=== PATIENT | male | born 1955 | race Caucasian/White ===

== ENCOUNTER → 2016-12-03 | Outpatient (CLI) | payer MEDICAID | END | disposition home or self-care (01) | LOC: Rad HDHVI 08:25 | PROVIDERS: ATTEND Internal Medicine Cardiovascular Disease | DX: Z01.810 Encounter for preprocedural cardiovascular examination (principal); I10 Essential (primary) hypertension; E11.9 Type 2 diabetes mellitus without complications; I07.1 Rheumatic tricuspid insufficiency; I34.2 Nonrheumatic mitral (valve) stenosis; I35.0 Nonrheumatic aortic (valve) stenosis | CPT/HCPCS: 93306 ==

== ENCOUNTER → 2016-12-23 | Outpatient (CLI) | payer MEDICAID ==
[~2016-12-23] VITALS: Ht 177.8 cm; Wt 108.0 kg
== END | disposition home or self-care (01) ==
LOC: Rad HDHVI 08:12
PROVIDERS: ATTEND Internal Medicine Cardiovascular Disease
DX: I25.10 Atherosclerotic heart disease of native coronary artery without angina pectoris (principal); I10 Essential (primary) hypertension; E11.9 Type 2 diabetes mellitus without complications; I25.2 Old myocardial infarction; Z95.1 Presence of aortocoronary bypass graft; E78.00 Pure hypercholesterolemia, unspecified
CPT/HCPCS: 78452; 93017; 96374; A9500

== ENCOUNTER 2022-08-20 20:41 | Emergency (ER) | payer MEDICARE, MEDICAID ==
[~2022-08-20] VITALS: Ht 180.3 cm; Wt 108.8 kg
[2022-08-20 23:08] VITALS: BP 130/75
== END 2022-08-21 06:42 | disposition left against medical advice (07) ==
LOC: ER 20:41
DX: M25.521 Pain in right elbow (principal); Z53.21 Procedure and treatment not carried out due to patient leaving prior to being seen by health care provider

== ENCOUNTER 2022-09-05 11:51 | Inpatient (IN) | payer MEDICARE, MEDICAID ==
[~2022-09-05] VITALS: Ht 180.3 cm; Wt 104.0 kg
[2022-09-05] MEDS ORDERED: ONDANSETRON HCL 4 MG/2 ML VIAL IV ONE (12:00)
[2022-09-05] MEDS ORDERED: ASPirin 325 MG TAB PO ONE (12:00)
[2022-09-05] MEDS ORDERED: NITROGLYCERIN 0.4 MG SL TAB SL ONE (12:00)
[2022-09-05] MEDS ORDERED: MORPHINE SULFATE 4 MG/ML SYR/VIAL IV ONE (12:00)
[2022-09-05 12:24] LABS: Basophils # (auto) 0 10 ^3/uL (0-0.2); Basophils % (auto) 0.6 % (0.0-2.0); Eosinophils # (auto) 0.1 10 ^3/uL (0-0.8); Eosinophils % (auto) 1.6 % (0.0-7.0); Hematocrit 43.8 % (41.0-53.0); Hemoglobin 14.8 g/dL (13.5-17.5); Lymphocytes # (auto) 1.4 10 ^3/uL (0.4-5.4); Lymphocytes % (auto) 32.8 % (10.0-50.0); Mean Corpuscular Hemoglobin 29.7 pg (28.0-32.0); Mean Corpuscular Hgb Conc. 33.8 g/dL (32.0-36.0); Monocytes # (auto) 0.5 10 ^3/uL (0-1.3); Monocytes % (auto) 12.3 % (0.0-12.0); Neutrophils # (auto) 2.2 10 ^3/uL (1.6-8.6); Neutrophils % (auto) 52.7 % (37.0-80.0); Red Blood Cells 4.98 10^6/uL (4.5-5.90); Red Cell Distribution Width 14.5 % (11.8-14.3); White Blood Cell 4.1 10^3/uL (4.4-10.8)
[2022-09-05 12:41] LABS: INR 1.01 (0.9-1.15); Partial Thromboplastin Time 26.3 sec (24.6-33.4)
[2022-09-05 12:42] LABS: Albumin 3.6 g/dL (3.4-5.0); BUN/Creatinine Ratio 15.9; Calcium 8.5 mg/dL (8.5-10.1); Potassium 4.3 mmol/L (3.5-5.1)
[2022-09-05 12:45] LABS: Bilirubin, Total 0.4 mg/dL (0.2-1.0); Total Protein 6.5 g/dL (6.4-8.2)
[2022-09-05 13:46] LABS: Urine Bacteria NONE SEEN /hpf (None Seen); Urine Blood Negative /uL (Negative); Urine WBC <1 /hpf (0 - 3)
[2022-09-05] MEDS ORDERED: ONDANSETRON HCL 4 MG/2 ML VIAL IV PRN (17:15)
[2022-09-05] MEDS ORDERED: NITROGLYCERIN 0.4 MG SL TAB SL PRN (17:15)
[2022-09-05] MEDS ORDERED: ACETAMINOPHEN 325 MG TAB PO PRN (17:15)
[2022-09-05] MEDS ORDERED: HYDROmorphone HCL 2 MG/ML VL/or syr IV PRN (17:15)
[2022-09-05] MEDS ORDERED: HYDROcodone-ACET 5/325MG TAB PO PRN (17:15)
[2022-09-05] MEDS ORDERED: IOHEXOL 350 MG/ML 100ML IJ ONE (19:30)
[2022-09-05] MEDS: MORPHINE SULFATE INJ 2 MG/ml SYRG IV PRN (19:55)
[2022-09-05] MEDS: SODIUM CHLOR 0.9% PF (SALINE LOCK) 10ML VIAL/SYR IV SCH (22:00)
[2022-09-06] VITALS (7 sets, daily range): BP systolic 99–121; BP diastolic 57–78
[2022-09-06] MEDS: MORPHINE SULFATE INJ 2 MG/ml SYRG IV PRN (03:37)
[2022-09-06] MEDS ORDERED: ASPirin 81 mg TAB PO ONE (04:30)
[2022-09-06] MEDS: SODIUM CHLOR 0.9% PF (SALINE LOCK) 10ML VIAL/SYR IV SCH ×3 (05:36→22:39)
[2022-09-06] MEDS ORDERED: KETOROLAC TROMETH 30 MG/ML 1ML VIAL IV ONE (06:30)
[2022-09-06] MEDS ORDERED: CHOL20007 PO (08:14)
[2022-09-06] MEDS ORDERED: SIMV-8 PO (08:14)
[2022-09-06] MEDS ORDERED: ALOG1TAB3 PO (08:14)
[2022-09-06] MEDS ORDERED: EMPA1TAB3 PO (08:14)
[2022-09-06] MEDS ORDERED: LISI-275 PO (08:14)
[2022-09-06] MEDS ORDERED: CLOP75TA70 PO (08:14)
[2022-09-06] MEDS ORDERED: GLIP10TA9 PO (08:14)
[2022-09-06] MEDS ORDERED: ASPI-543 PO (08:14)
[2022-09-06] MEDS ORDERED: ACET-1156 PO (08:14)
[2022-09-06] MEDS: CLOPIDOGREL BISULFATE 75 MG TAB PO SCH (09:35)
[2022-09-06] MEDS: ASPirin-EC 81 mg tab PO SCH (09:35)
[2022-09-06] MEDS ORDERED: DEXTROSE (50%) 50ML SYRG IV PRN (11:30)
[2022-09-06] MEDS: ACCU-CHEK COMFORT CURVE STRIP VI SCH ×3 (11:58→22:36)
[2022-09-06] MEDS: InsuLIN REG 1unit/0.01ml Soln (100units/ml) SC SCH ×3 (12:03→22:38)
[2022-09-06] MEDS: ATORVASTATIN 20 MG TAB PO SCH (22:28)
[2022-09-07] VITALS (8 sets, daily range): BP systolic 104–124; BP diastolic 63–80
[2022-09-07 05:31] LABS: Basophils # (auto) 0 10 ^3/uL (0-0.2); Basophils % (auto) 0.8 % (0.0-2.0); Eosinophils # (auto) 0.1 10 ^3/uL (0-0.8); Hematocrit 45.1 % (41.0-53.0); Hemoglobin 15.6 g/dL (13.5-17.5); Lymphocytes # (auto) 1.7 10 ^3/uL (0.4-5.4); Lymphocytes % (auto) 35.2 % (10.0-50.0); Mean Corpuscular Hemoglobin 30.2 pg (28.0-32.0); Mean Corpuscular Hgb Conc. 34.4 g/dL (32.0-36.0); Mean Corpuscular Volume 87.5 fL (80.0-100.0); Monocytes # (auto) 0.6 10 ^3/uL (0-1.3); Monocytes % (auto) 12.5 % (0.0-12.0); Neutrophils # (auto) 2.4 10 ^3/uL (1.6-8.6); Neutrophils % (auto) 49.5 % (37.0-80.0); Nucleated Red Blood Cells % 0.1 %; Red Blood Cells 5.16 10^6/uL (4.5-5.90); Red Cell Distribution Width 14.4 % (11.8-14.3); White Blood Cell 4.8 10^3/uL (4.4-10.8)
[2022-09-07 05:45] LABS: Albumin 3.9 g/dL (3.4-5.0); Calcium 8.6 mg/dL (8.5-10.1); Potassium 4.6 mmol/L (3.5-5.1)
[2022-09-07 05:50] LABS: BUN/Creatinine Ratio 18.1; Bilirubin, Total 0.4 mg/dL (0.2-1.0); Total Protein 6.6 g/dL (6.4-8.2)
[2022-09-07] MEDS: InsuLIN REG 1unit/0.01ml Soln (100units/ml) SC SCH ×4 (06:07→21:07)
[2022-09-07] MEDS: SODIUM CHLOR 0.9% PF (SALINE LOCK) 10ML VIAL/SYR IV SCH ×3 (06:08→22:14)
[2022-09-07] MEDS: ACCU-CHEK COMFORT CURVE STRIP VI SCH ×4 (07:03→21:06)
[2022-09-07] MEDS: ASPirin-EC 81 mg tab PO SCH (09:56)
[2022-09-07] MEDS: CHOLECALCIFEROL (VITD3) 2,000 UNIT CAP/TAB PO SCH (09:57)
[2022-09-07] MEDS: CLOPIDOGREL BISULFATE 75 MG TAB PO SCH (09:57)
[2022-09-07] MEDS: LISINOPRIL 5 MG TAB PO SCH (09:58)
[2022-09-07] MEDS ORDERED: IOHEXOL 350 MG/ML 100ML IJ ONE ×2 (12:39→15:09)
[2022-09-07] MEDS ORDERED: LIDOCAINE 2%HCL (LOCAL ANESTH.) INJ 10ml MDV ONE ×2 (12:39→15:09)
[2022-09-07] MEDS ORDERED: ANGIOMAX 250 MG VIAL IV ONE (15:06)
[2022-09-07] MEDS ORDERED: SODIUM CHL 0.9% 0 ML ONE (15:07)
[2022-09-07] MEDS ORDERED: fentaNYL CITRATE 100 MCG/2 ML VL ONE (15:07)
[2022-09-07] MEDS ORDERED: MIDAZOLAM HCL 2MG/2ML 2ml VIAL (1mg/ml) ONE (15:07)
[2022-09-07] MEDS: DOCUSATE SOD 100 MG CAP PO PRN (21:08)
[2022-09-07] MEDS: ATORVASTATIN 20 MG TAB PO SCH (21:08)
[2022-09-08 04:47] VITALS: BP 101/68
[2022-09-08] MEDS: SODIUM CHLOR 0.9% PF (SALINE LOCK) 10ML VIAL/SYR IV SCH ×3 (05:14→21:18)
[2022-09-08] MEDS: ACCU-CHEK COMFORT CURVE STRIP VI SCH ×4 (06:17→21:20)
[2022-09-08] MEDS: InsuLIN REG 1unit/0.01ml Soln (100units/ml) SC SCH ×4 (06:21→21:20)
[2022-09-08 08:59] LABS: BUN/Creatinine Ratio 14.3; Calcium 9.1 mg/dL (8.5-10.1); Potassium 4.2 mmol/L (3.5-5.1)
[2022-09-08 09:08] VITALS: BP 115/73
[2022-09-08] MEDS: ASPirin-EC 81 mg tab PO SCH (09:27)
[2022-09-08] MEDS: CHOLECALCIFEROL (VITD3) 2,000 UNIT CAP/TAB PO SCH (09:27)
[2022-09-08] MEDS: CLOPIDOGREL BISULFATE 75 MG TAB PO SCH (09:27)
[2022-09-08] MEDS: LISINOPRIL 5 MG TAB PO SCH (09:28)
[2022-09-08 13:40] VITALS: BP 125/73
[2022-09-08 17:23] VITALS: BP 106/70
[2022-09-08] MEDS: DOCUSATE SOD 100 MG CAP PO PRN (21:12)
[2022-09-08] MEDS: ATORVASTATIN 20 MG TAB PO SCH (21:12)
[2022-09-08 22:25] VITALS: BP 117/82
[2022-09-09 04:43] VITALS: BP 113/76
[2022-09-09] MEDS: SODIUM CHLOR 0.9% PF (SALINE LOCK) 10ML VIAL/SYR IV SCH ×3 (06:09→23:30)
[2022-09-09] MEDS: ACCU-CHEK COMFORT CURVE STRIP VI SCH ×4 (06:16→23:30)
[2022-09-09] MEDS: InsuLIN REG 1unit/0.01ml Soln (100units/ml) SC SCH ×4 (06:21→23:41)
[2022-09-09 08:51] VITALS: BP 117/74
[2022-09-09] MEDS: CHOLECALCIFEROL (VITD3) 2,000 UNIT CAP/TAB PO SCH (09:13)
[2022-09-09] MEDS: ASPirin-EC 81 mg tab PO SCH (09:13)
[2022-09-09] MEDS: LISINOPRIL 5 MG TAB PO SCH (09:14)
[2022-09-09] MEDS: CLOPIDOGREL BISULFATE 75 MG TAB PO SCH (09:14)
[2022-09-09] MEDS: DOCUSATE SOD 100 MG CAP PO PRN ×2 (11:33→23:34)
[2022-09-09 12:39] VITALS: BP 110/66
[2022-09-09 16:36] VITALS: BP 104/72
[2022-09-09 22:00] VITALS: BP 113/69
[2022-09-09] MEDS: ATORVASTATIN 20 MG TAB PO SCH (23:30)
[2022-09-10] VITALS (9 sets, daily range): BP systolic 101–116; BP diastolic 68–80
[2022-09-10 01:59] LABS: INR 1.01 (0.9-1.15); Partial Thromboplastin Time 27.7 sec (24.6-33.4)
[2022-09-10 06:36] LABS: Basophils # (auto) 0 10 ^3/uL (0-0.2); Basophils % (auto) 0.4 % (0.0-2.0); Eosinophils # (auto) 0.1 10 ^3/uL (0-0.8); Hematocrit 46.3 % (41.0-53.0); Hemoglobin 16.2 g/dL (13.5-17.5); Lymphocytes # (auto) 1.6 10 ^3/uL (0.4-5.4); Lymphocytes % (auto) 38.5 % (10.0-50.0); Mean Corpuscular Hgb Conc. 34.9 g/dL (32.0-36.0); Monocytes # (auto) 0.6 10 ^3/uL (0-1.3); Monocytes % (auto) 15.2 % (0.0-12.0); Neutrophils # (auto) 1.8 10 ^3/uL (1.6-8.6); Neutrophils % (auto) 43.9 % (37.0-80.0); Nucleated Red Blood Cells % 0.2 %; Red Blood Cells 5.38 10^6/uL (4.5-5.90); Red Cell Distribution Width 14.2 % (11.8-14.3)
[2022-09-10] MEDS: SODIUM CHLOR 0.9% PF (SALINE LOCK) 10ML VIAL/SYR IV SCH ×3 (06:40→22:17)
[2022-09-10] MEDS: ACCU-CHEK COMFORT CURVE STRIP VI SCH ×4 (06:44→22:18)
[2022-09-10 06:47] LABS: BUN/Creatinine Ratio 18.8; Calcium 9.2 mg/dL (8.5-10.1); Potassium 3.9 mmol/L (3.5-5.1)
[2022-09-10] MEDS: InsuLIN REG 1unit/0.01ml Soln (100units/ml) SC SCH ×4 (06:48→22:22)
[2022-09-10] MEDS: CHOLECALCIFEROL (VITD3) 2,000 UNIT CAP/TAB PO SCH (09:35)
[2022-09-10] MEDS: ASPirin-EC 81 mg tab PO SCH (09:35)
[2022-09-10] MEDS: CLOPIDOGREL BISULFATE 75 MG TAB PO SCH (09:35)
[2022-09-10] MEDS: LISINOPRIL 5 MG TAB PO SCH (09:36)
[2022-09-10] MEDS: DOCUSATE SOD 100 MG CAP PO PRN (09:40)
[2022-09-10] MEDS ORDERED: fentaNYL CITRATE 100 MCG/2 ML VL ONE (09:49)
[2022-09-10] MEDS ORDERED: ANGIOMAX 250 MG VIAL IV ONE ×2 (09:49→10:47)
[2022-09-10] MEDS ORDERED: SODIUM CHL 0.9% 50 ML ONE ×2 (09:49→10:47)
[2022-09-10] MEDS ORDERED: MIDAZOLAM HCL 2MG/2ML 2ml VIAL (1mg/ml) ONE (09:49)
[2022-09-10] MEDS ORDERED: LIDOCAINE 2%HCL (LOCAL ANESTH.) INJ 10ml MDV ONE ×2 (09:50→10:06)
[2022-09-10] MEDS ORDERED: IOHEXOL 350 MG/ML 100ML IJ ONE ×3 (09:52→11:01)
[2022-09-10] MEDS ORDERED: EPTIFIBATIDE INJ (2MG/ML) 10ML VIAL IV ONE (10:50)
[2022-09-10] MEDS ORDERED: ADENOSINE 6 MG/2 ML INJ IV ONE (10:57)
[2022-09-10] MEDS: ATORVASTATIN 20 MG TAB PO SCH (22:22)
[2022-09-11 05:00] VITALS: BP 108/68
[2022-09-11] MEDS: SODIUM CHLOR 0.9% PF (SALINE LOCK) 10ML VIAL/SYR IV SCH (06:30)
[2022-09-11] MEDS: ACCU-CHEK COMFORT CURVE STRIP VI SCH (06:32)
[2022-09-11] MEDS: InsuLIN REG 1unit/0.01ml Soln (100units/ml) SC SCH (06:40)
[2022-09-11 06:53] LABS: Potassium 4.3 mmol/L (3.5-5.1)
[2022-09-11 07:04] LABS: BUN/Creatinine Ratio 16.2; Calcium 9.3 mg/dL (8.5-10.1)
[2022-09-11 09:11] VITALS: BP 109/67
[2022-09-11] MEDS: CLOPIDOGREL BISULFATE 75 MG TAB PO SCH (09:24)
[2022-09-11] MEDS: CHOLECALCIFEROL (VITD3) 2,000 UNIT CAP/TAB PO SCH (09:24)
[2022-09-11] MEDS: ASPirin-EC 81 mg tab PO SCH (09:24)
[2022-09-11] MEDS: LISINOPRIL 5 MG TAB PO SCH (09:25)
[2022-09-11 10:45] VITALS: BP 109/67
[2022-09-11] MEDS ORDERED: GLUC-244 VI (19:48)
== END 2022-09-11 12:12 | disposition home or self-care (01) | DRG 248 ==
LOC: EDBD 11:51 → ER 11:51 → TELE 17:17 → TELE-CENTR 09-06 01:30
PROVIDERS: ADMIT Internal Medicine; ATTEND Internal Medicine Geriatric Medicine
PROC: 4A023N7 Measurement of Cardiac Sampling and Pressure, Left Heart, Percutaneous Approach (ICD-10-PCS; principal; 2022-09-07)
PROC: B2111ZZ Fluoroscopy of Multiple Coronary Arteries using Low Osmolar Contrast (ICD-10-PCS; 2022-09-07)
PROC: B21F1ZZ Fluoroscopy of Other Bypass Graft using Low Osmolar Contrast (ICD-10-PCS; 2022-09-07)
PROC: B2181ZZ Fluoroscopy of Left Internal Mammary Bypass Graft using Low Osmolar Contrast (ICD-10-PCS; 2022-09-07)
PROC: B2151ZZ Fluoroscopy of Left Heart using Low Osmolar Contrast (ICD-10-PCS; 2022-09-07)
PROC: B3101ZZ Fluoroscopy of Thoracic Aorta using Low Osmolar Contrast (ICD-10-PCS; 2022-09-07)
PROC: 02713GZ Dilation of Coronary Artery, Two Arteries with Four or More Intraluminal Devices, Percutaneous Approach (ICD-10-PCS; 2022-09-10)
PROC: 3E073PZ Introduction of Platelet Inhibitor into Coronary Artery, Percutaneous Approach (ICD-10-PCS; 2022-09-10)
PROC: 02C03ZZ Extirpation of Matter from Coronary Artery, One Artery, Percutaneous Approach (ICD-10-PCS; 2022-09-10)
DX: I25.119 Atherosclerotic heart disease of native coronary artery with unspecified angina pectoris (principal); I31.9 Disease of pericardium, unspecified; J98.11 Atelectasis; E78.5 Hyperlipidemia, unspecified; E11.9 Type 2 diabetes mellitus without complications; I10 Essential (primary) hypertension; K76.0 Fatty (change of) liver, not elsewhere classified; K80.20 Calculus of gallbladder without cholecystitis without obstruction; Z79.02 Long term (current) use of antithrombotics/antiplatelets; Z95.1 Presence of aortocoronary bypass graft; Z20.822 Contact with and (suspected) exposure to COVID-19
CPT/HCPCS: 36415; 71045; 71275; 80048; 80053; 80061; 81001; 82962; 83735; 83880; 84484; 85025; 85379; 85610; 85730; 86850; 86900; 86901; 87426; 92928; 92929; 92933; 93005; 93306; 93459; 96374; 96375; 96376; 99152; 99153; C1724; C1769; C1874; G0378; J0153; J1815; J1885; J2001; J2250; J2405

== ENCOUNTER → 2022-11-03 | Outpatient (CLI) | payer MEDICARE, MEDICAID ==
[~2022-11-03] MED LIST: ACET-1156 PO; ASPI-543 PO; CHOL20007 PO; CLOP75TA70 PO; EMPA1TAB3 PO; GLIP10TA9 PO; GLUC-244 VI; LISI-275 PO; SIMV-8 PO
== END | disposition home or self-care (01) ==
LOC: Rad HDHVI 12:56
PROVIDERS: ATTEND Internal Medicine Cardiovascular Disease
DX: R07.89 Other chest pain (principal); I10 Essential (primary) hypertension
CPT/HCPCS: 93306

== ENCOUNTER → 2022-11-16 | Outpatient (CLI) | payer MEDICARE, MEDICAID ==
[~2022-11-16] VITALS: Ht 182.9 cm; Wt 104.3 kg
== END | disposition home or self-care (01) ==
LOC: Rad HDHVI 13:00
PROVIDERS: ATTEND Internal Medicine Cardiovascular Disease
DX: I25.10 Atherosclerotic heart disease of native coronary artery without angina pectoris (principal); R07.9 Chest pain, unspecified; R06.02 Shortness of breath; I25.2 Old myocardial infarction; I10 Essential (primary) hypertension; E11.9 Type 2 diabetes mellitus without complications; E78.2 Mixed hyperlipidemia; Z95.1 Presence of aortocoronary bypass graft
CPT/HCPCS: 78452; 93017; 96374; A9500

== ENCOUNTER 2023-03-02 21:16 | Emergency (ER) | payer MEDICARE, MEDICAID ==
[~2023-03-02] VITALS: Ht 185.4 cm; Wt 118.0 kg
[2023-03-02] MEDS ORDERED: ONDANSETRON HCL 4 MG/2 ML VIAL IV ONE (22:00)
[2023-03-02] MEDS ORDERED: SODIUM CHLORIDE 0.9% 1,000 ML IV ONE (22:00)
[2023-03-02] MEDS ORDERED: HYDROmorphone HCL 2 MG/ML VL/or syr IV ONE (22:00)
[2023-03-02 22:05] LABS: Basophils # (auto) 0 10 ^3/uL (0-0.2); Basophils % (auto) 0.7 % (0.0-2.0); Eosinophils # (auto) 0.1 10 ^3/uL (0-0.8); Eosinophils % (auto) 2.2 % (0.0-7.0); Hematocrit 48.5 % (41.0-53.0); Hemoglobin 16.7 g/dL (13.5-17.5); Lymphocytes # (auto) 2.2 10 ^3/uL (0.4-5.4); Lymphocytes % (auto) 34.6 % (10.0-50.0); Mean Corpuscular Hgb Conc. 34.4 g/dL (32.0-36.0); Mean Corpuscular Volume 87.3 fL (80.0-100.0); Monocytes # (auto) 0.8 10 ^3/uL (0-1.3); Monocytes % (auto) 12.7 % (0.0-12.0); Neutrophils # (auto) 3.2 10 ^3/uL (1.6-8.6); Neutrophils % (auto) 49.8 % (37.0-80.0); Nucleated Red Blood Cells % 0.2 %; Red Blood Cells 5.56 10^6/uL (4.5-5.90); Red Cell Distribution Width 14.7 % (11.8-14.3); White Blood Cell 6.4 10^3/uL (4.4-10.8)
[2023-03-02 22:22] LABS: Albumin 3.6 g/dL (3.4-5.0); Calcium 9.4 mg/dL (8.5-10.1); Potassium 4.1 mmol/L (3.5-5.1)
[2023-03-02 22:26] LABS: BUN/Creatinine Ratio 19.4 (10.0-20.0); Bilirubin, Total 0.4 mg/dL (0.2-1.0); Total Protein 6.8 g/dL (6.4-8.2)
[2023-03-03] MEDS ORDERED: HYDROmorphone HCL 2 MG/ML VL/or syr IV ONE (00:15)
[2023-03-03] MEDS ORDERED: DexAMETHasone SOD PHOS 10MG/1ML VIAL INJ IV ONE (02:45)
[2023-03-03 04:25] VITALS: BP 125/71
== END 2023-03-03 04:32 | disposition home or self-care (01) ==
LOC: EDBD 21:16 → ER 21:16
DX: S33.5XXA Sprain of ligaments of lumbar spine, initial encounter (principal); E11.9 Type 2 diabetes mellitus without complications; I10 Essential (primary) hypertension; Z79.899 Other long term (current) drug therapy; Z79.82 Long term (current) use of aspirin; Z98.890 Other specified postprocedural states; X58.XXXA Exposure to other specified factors, initial encounter; Y93.89 Activity, other specified; Y92.89 Other specified places as the place of occurrence of the external cause; Y99.8 Other external cause status
CPT/HCPCS: 36415; 70450; 71045; 71250; 72125; 74176; 80053; 84484; 85025; 93005; 96361; 96374; 96375; 96376; 99285; J1100; J1170; J2405; J7030

== ENCOUNTER 2023-12-21 12:25 | Inpatient (IN) | payer OTHER, MEDICAID ==
[~2023-12-21] VITALS: Ht 182.9 cm; Wt 104.0 kg
[2023-12-21 12:25] VITALS: BP 116/65; RESP 18; O2SAT 99
[~2023-12-21 12:25] MED LIST changes: -ACET-1156 PO; +ACET-1881 PO; -SIMV-8 PO; +SIMV20TA20 PO
[2023-12-21 12:49] LABS: Basophils # (auto) 0 10 ^3/uL (0-0.2); Basophils % (auto) 0.6 % (0.0-2.0); Eosinophils # (auto) 0.1 10 ^3/uL (0-0.8); Eosinophils % (auto) 1.6 % (0.0-7.0); Hematocrit 43.5 % (41.0-53.0); Hemoglobin 14.6 g/dL (13.5-17.5); Lymphocytes # (auto) 1.3 10 ^3/uL (0.4-5.4); Mean Corpuscular Hgb Conc. 33.6 g/dL (32.0-36.0); Mean Corpuscular Volume 89.4 fL (80.0-100.0); Monocytes # (auto) 0.6 10 ^3/uL (0-1.3); Monocytes % (auto) 11.3 % (0.0-12.0); Neutrophils # (auto) 3.1 10 ^3/uL (1.6-8.6); Neutrophils % (auto) 60.5 % (37.0-80.0); Nucleated Red Blood Cells % 0.1 %; Red Blood Cells 4.87 10^6/uL (4.5-5.90); Red Cell Distribution Width 14.7 % (11.8-14.3); White Blood Cell 5.2 10^3/uL (4.4-10.8)
[2023-12-21 13:11] LABS: Alanine Aminotransferase 22 U/L (7-40); Alkaline Phosphatase 72 U/L (46-116); Anion Gap 5 (5-15); Aspartate Aminotransferase 17 U/L (13-40); BUN/Creatinine Ratio 22.1 (10.0-20.0); Bilirubin, Total 0.8 mg/dL (0.2-1.0); Blood Urea Nitrogen 17 mg/dL (9-23); Calcium 8.8 mg/dL (8.7-10.4); Carbon Dioxide 27 mmol/L (20-30); Chloride 107 mmol/L (98-107); Glucose 183 mg/dL (74-106); Magnesium 1.8 mg/dL (1.6-2.6); Potassium 4.1 mmol/L (3.5-5.1); Sodium 139 mmol/L (136-145)
[2023-12-21] MEDS ORDERED: ONDANSETRON HCL 4 MG/2 ML VIAL IV PRN (15:30)
[2023-12-21] MEDS ORDERED: DEXTROSE (50%) 50ML SYRG IV PRN (15:30)
[2023-12-21] MEDS ORDERED: ACETAMINOPHEN 325 MG TAB PO PRN (15:30)
[2023-12-21] MEDS ORDERED: HYDROcodone-ACET 5/325MG TAB PO PRN (15:30)
[2023-12-21] MEDS ORDERED: MORPHINE SULFATE INJ 2 MG/ml SYRG IV PRN (15:30)
[2023-12-21] MEDS ORDERED: NITROGLYCERIN 0.4 MG SL TAB SL PRN (15:30)
[2023-12-21] MEDS ORDERED: HYDROmorphone HCL 2 MG/ML VL/or syr IV PRN (15:30)
[2023-12-21] MEDS ORDERED: DOCUSATE SOD 100 MG CAP PO PRN (15:30)
[2023-12-21] MEDS ORDERED: InsuLIN REG 1unit/0.01ml Soln (100units/ml) SC SCH (17:00)
[2023-12-21] MEDS ORDERED: ACCU-CHEK COMFORT CURVE STRIP VI SCH (17:00)
[2023-12-21 17:20] VITALS: PULSE 90
[2023-12-21] MEDS ORDERED: SODIUM CHLOR 0.9% PF (SALINE LOCK) 10ML VIAL/SYR IV SCH (22:00)
[2023-12-21] MEDS ORDERED: ATORVASTATIN 20 MG TAB PO SCH (22:00)
[2023-12-21] MEDS ORDERED: PATIENTS OWN MEDICATION (Simvastatin 20 MG) PO SCH (22:00)
[2023-12-22] MEDS ORDERED: CHOLECALCIFEROL (VITD3) 2,000 UNIT CAP/TAB PO SCH (10:00)
[2023-12-22] MEDS ORDERED: LISINOPRIL 5 MG TAB PO SCH (10:00)
[2023-12-22] MEDS ORDERED: ASPirin-EC 81 mg tab PO SCH (10:00)
[2023-12-22] MEDS ORDERED: ENOXAPARIN SOD 40 MG/0.4 ML SYRINGE SC SCH (10:00)
[2023-12-22] MEDS ORDERED: PATIENTS OWN MEDICATION (Cholecalciferol (Vitamin D3) 1 TAB) PO SCH (10:00)
[2023-12-22] MEDS ORDERED: CLOPIDOGREL BISULFATE 75 MG TAB PO SCH (10:00)
== END 2023-12-21 20:05 | disposition left against medical advice (07) | DRG 311 ==
LOC: EDBD 12:25 → ER 12:25 → TELE 15:22
PROVIDERS: ADMIT Internal Medicine; ATTEND Internal Medicine
DX: I24.9 Acute ischemic heart disease, unspecified (principal); E78.5 Hyperlipidemia, unspecified; I10 Essential (primary) hypertension; Z53.29 Procedure and treatment not carried out because of patient's decision for other reasons; E11.9 Type 2 diabetes mellitus without complications; I25.2 Old myocardial infarction; Z79.02 Long term (current) use of antithrombotics/antiplatelets; Z79.84 Long term (current) use of oral hypoglycemic drugs; Z95.1 Presence of aortocoronary bypass graft; Z95.5 Presence of coronary angioplasty implant and graft; Z87.891 Personal history of nicotine dependence
CPT/HCPCS: 36415; 71045; 71275; 80053; 83735; 84484; 85025; 85379; 93005; 93971; 99291; G0378